=== PATIENT | male | born 1965 | race Caucasian/White ===

== ENCOUNTER → 2020-08-12 11:19 | Outpatient (CLI) | payer OTHER, SELFPAY ==
[2020-08-12 11:41] LABS: Basophils # 0.1 K/mm3 (0-0.2); Eosinophils # 0.2 K/mm3 (0.0-0.4); Eosinophils % 2.3 % (0.1-12.0); Hematocrit 49.6 % (42.0-52.0); Hemoglobin 16.3 g/dL (14.1-18.0); Lymphocytes # 2.8 K/mm3 (0.7-4.5); Mean Corpuscular HGB Conc 32.8 g/dL (31.8-35.4); Mean Corpuscular Hemoglobin 34.4 pg (27.0-31.2); Mean Corpuscular Volume 104.8 fl (80-94); Mean Platelet Volume 8.5 fl (7.4-10.4); Monocytes # 0.9 K/mm3 (0.1-1.0); Monocytes % 9.8 % (1.7-9.3); Neutrophils # 5.1 K/mm3 (1.8-7.8); Neutrophils % 55.8 % (37.0-80.0); Platelet Count 210 K/mm3 (142-424); Red Blood Count 4.73 M/mm3 (4.60-6.20); Red Cell Distribution Width 13.1 % (11.5-17.5); White Blood Count 9.1 K/mm3 (4.8-10.8)
[2020-08-12 12:13] LABS: Alanine Aminotransferase 104 U/L (12-78); Albumin Level 5.3 g/dl (3.5-5.0); Albumin/Globulin Ratio 1.7 (1.1-1.8); Alkaline Phosphatase 95 U/L (38-126); Aspartate Amino Transferase 115 U/L (17-59); Bilirubin,Total 0.8 mg/dl (0.2-1.3); Blood Urea Nitrogen 6 mg/dl (9-20); Calcium 10.3 mg/dl (8.4-10.2); Carbon Dioxide 30 mmol/L (22.0-30.0); Chloride 101 mmol/L (98-107); Estimated Glomerular Filt Rate 101 ml/min (>60); GFR (African American) 122 ML/MIN (>60); Globulin 3.2 g/dL (1.3-3.2); Glucose 96 mg/dl (74-100); Sodium 143 mmol/L (136-145); Total Protein,Serum 8.5 g/dl (6.3-8.2)
[2020-08-12 12:41] LABS: Prothrombin Time 9.6 seconds (10.1-12.5)
[2020-08-13 09:50] LABS: Hep A Ab, IgM Negative (Negative); Hepatitis B Core Antibody IgM Negative (Negative); Hepatitis B Surface Antigen Negative (Negative); Hepatitis C Antibody <0.1 s/co ratio (0.0-0.9)
== END ==
PROVIDERS: Visit Provider Surgery
DX: K40.90 Unilateral inguinal hernia, without obstruction or gangrene, not specified as recurrent (principal)
CPT/HCPCS: 36415; 80053; 80074; 85025; 85610

== ENCOUNTER → 2020-09-08 08:56 | Outpatient (CLI) | payer OTHER, SELFPAY ==
--- NOTE | 2020-09-08 09:01 | CA_ITS ---
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: Lauren Nelson RVT Ht: 5 ft 9 in Wt: 131lbs BSA: 1.73 BP: 138/100 mmHg Indications: PRE-OP,CP,EDEMA,SMOKER,SOA,FATIGUE,ABN EKG,ALCOHOL ABUSE 2D Dimensions LVOT 2.04 cm (M/F) 1.5-2.5 LA Volume 15.10 mL LA Volume Index 8.77 mL/m2 (M/F) 16-34 M-Mode Dimensions RVDd 2.57 cm (0.9-2.6) LA Diam 2.85 cm (1.9-4.0) LVDd 3.70 cm (3.5-5.7) Ao Diam 3.19 cm (2.0-3.7) LVDs 2.11 cm (3.5-5.7) IVSd 0.98 cm (0.6-1.1) PWd 0.84 cm (0.6-1.1) EF (Teich) 74.90% FS 43.00% EDV (Teich) 58.10 mL TAPSE 2.15 (<1.7) ESV (Teich) 14.60 mL LV Diastology E Decel Time 240.00 (160-240 msec) E/A Ratio 1.2 MED E' 8.60 (< 7 cm/sec) E'/MED E' Ratio 8.93 (>14) LAT E' 13.20 (<10 cm/sec) E/LAT E' Ratio 5.82 (>14) Aortic Valve AO Peak GR. 6.00 mmHg Mitral Valve MV E Max Fox. 77.00 (40-130 cm/s) MV A Velocity 62.00 (40-130 cm/s) E/A Ratio 1.24 MV Decel. Time 240.00 (160-240 ms) MV PHT 70.00 ms Pulmonary Valve PV Peak Velocity 68.00 (50-150 cm/s) Tricuspid Valve TR P. Velocity 173.00 cm/s RAP Estimate 10.00 mmHg RVSP 21.90 mmHg Left Ventricle Left atrium is normal size, left ventricle is normal size, there is no concentric left ventricular hypertrophy, visually estimated ejection fraction 55% with no regional wall motion abnormality, diastolic parameters are within normal range. Right Ventricle Right atrium and right ventricle are normal size and contractility. Aortic Valve Aortic valve is grossly normal, there is no aortic stenosis or aortic insufficiency. Mitral Valve Mitral valve is grossly normal, there is trace mitral regurgitation. Tricuspid Valve Tricuspid valve grossly normal, there is trace tricuspid regurgitation, tricuspid regurgitation jet velocity is inadequate for calculation of the right ventricular systolic pressure. Pulmonic Valve Pulmonic valve is poorly visualized. Great Vessels Aortic root is normal size. Pericardium No significant pericardial effusion noted. Conclusion 1. Normal left ventricular size, preserved left ventricular systolic function, visually estimated ejection fraction 55% with no regional wall motion abnormality, diastolic parameters are within normal range. 2. Trace mitral and tricuspid regurgitation. 3. No significant pericardial effusion noted. Electronically signed by : Spike Chavez, 09/08/2020 15:21:35
== END ==
PROVIDERS: PCP Family Medicine Adult Medicine; Visit Provider Internal Medicine
DX: Z01.810 Encounter for preprocedural cardiovascular examination (principal); R06.00 Dyspnea, unspecified; I20.8 Other forms of angina pectoris; R94.31 Abnormal electrocardiogram [ECG] [EKG]; R00.0 Tachycardia, unspecified; F17.200 Nicotine dependence, unspecified, uncomplicated; Z82.49 Family history of ischemic heart disease and other diseases of the circulatory system
CPT/HCPCS: 93306

== ENCOUNTER → 2020-09-14 13:17 | Outpatient (CLI) | payer OTHER, SELFPAY ==
[2020-09-14 14:14] LABS: Anion Gap 13.6 mEq/L (5-15); Blood Urea Nitrogen 8 mg/dl (9-20); Calcium 9.3 mg/dl (8.4-10.2); Carbon Dioxide 28 mmol/L (22.0-30.0); Chloride 103 mmol/L (98-107); Estimated Glomerular Filt Rate 118 ml/min (>60); GFR (African American) 143 ML/MIN (>60); Glucose 84 mg/dl (74-100); Potassium 4.6 mmoL/L (3.5-5.1); Sodium 140 mmol/L (136-145)
[2020-09-14 14:18] LABS: Basophils # 0.2 K/mm3 (0-0.2); Basophils % 2.5 % (0.1-2.0); Eosinophils # 0.3 K/mm3 (0.0-0.4); Eosinophils % 2.9 % (0.1-12.0); Lymphocytes # 3.9 K/mm3 (0.7-4.5); Lymphocytes % 39.9 % (10-50); Mean Corpuscular HGB Conc 33.4 g/dL (31.8-35.4); Mean Corpuscular Hemoglobin 34.2 pg (27.0-31.2); Mean Corpuscular Volume 102.3 fl (80-94); Monocytes # 0.9 K/mm3 (0.1-1.0); Monocytes % 9.4 % (1.7-9.3); Neutrophils # 4.4 K/mm3 (1.8-7.8); Neutrophils % 45.4 % (37.0-80.0); Platelet Count 196 K/mm3 (142-424); Red Cell Distribution Width 13.5 % (11.5-17.5); White Blood Count 9.7 K/mm3 (4.8-10.8)
== END ==
PROVIDERS: Visit Provider Internal Medicine
DX: Z01.810 Encounter for preprocedural cardiovascular examination (principal); Z11.52 Encounter for screening for COVID-19; I20.8 Other forms of angina pectoris; R07.9 Chest pain, unspecified; R06.00 Dyspnea, unspecified; R00.0 Tachycardia, unspecified; F17.200 Nicotine dependence, unspecified, uncomplicated; Z82.49 Family history of ischemic heart disease and other diseases of the circulatory system
CPT/HCPCS: 36415; 80048; 85025; U0003

== ENCOUNTER 2020-09-15 07:25 | Day surgery (SDC) | payer OTHER, SELFPAY ==
[2020-09-15] VITALS (8 sets, daily range): BP systolic 101–179; BP diastolic 61–117; PULSE 52–77; RESP 16–20; TEMP 36.8–36.9; O2SAT 98–100; BMI 19.3
--- NOTE | 2020-09-15 07:17 | IR_ITS ---
APPROVED REPORT Patient Location: Outpatient Credit Processor: RAHUL Irwin RT (R) PROCEDURES Left heart catheterization Left ventriculogram Selective coronary angiogram INDICATION Preoperative evaluation, Angina pectoris Informed consent was obtained prior to the procedure. COMPLICATIONS NONE Estimated Blood Loss: LESS THAN 10 ML TECHNIQUE One percent lidocaine used to anesthetize the right anterior aspect of the wrist. The right radial artery was accessed via the Seldinger technique. A 6 Pashto sheath was placed in the right radial artery. 2.5 mg of verapamil, 800 mcg of nitroglycerin, 1mg Lidocaine and 5000 U Heparin were given through the arterial sheath. The trap catheter was also used to perform left heart catheterization, left ventriculogram and selective coronary angiogram. At the end of the procedure the sheath was removed good hemostasis was achieved using Traclet band, patient was transferred to the postop holding area in stable condition. ANGIOGRAPHIC RESULTS The left main artery Normal The left anterior descending artery Has proximal smooth 20 to 30% stenosis with remaining vessel normal The circumflex artery Dominant with diffuse 10 to 20% stenoses The right coronary artery Nondominant with mild 10% luminal irregularities The KAYE ventriculogram reveals Normal 65% The left ventricular end-diastolic pressure 10 mmHg IMPRESSION Mild nonflow limiting coronary disease Normal ejection fraction Normal left ventricular and SI pressure PLAN 1. Aggressive risk factor modification 2. Avoidance of tobacco products 3. LDL less than 55 4. Patient is alone acceptable risk to proceed with elective bilateral herniorrhaphy Electronically signed by : Xavier Sanchez, 09/15/2020 09:33:20
== END 2020-09-15 11:25 | disposition home or self-care (01) ==
LOC: CATHLAB 07:28
PROVIDERS: PCP Family Medicine Adult Medicine; Visit Provider Internal Medicine
DX: I20.8 Other forms of angina pectoris (principal); F17.210 Nicotine dependence, cigarettes, uncomplicated; R00.0 Tachycardia, unspecified; R06.00 Dyspnea, unspecified; R94.31 Abnormal electrocardiogram [ECG] [EKG]; Z82.49 Family history of ischemic heart disease and other diseases of the circulatory system
CPT/HCPCS: 93458; 99152; C1725; C1769; J1644; Q9967

== ENCOUNTER → 2020-10-01 09:29 | Outpatient (CLI) | payer OTHER, SELFPAY ==
[2020-10-01 10:04] LABS: Basophils # 0.1 K/mm3 (0-0.2); Eosinophils # 0.3 K/mm3 (0.0-0.4); Eosinophils % 4.1 % (0.1-12.0); Hemoglobin 15.5 g/dL (14.1-18.0); Lymphocytes # 2.1 K/mm3 (0.7-4.5); Lymphocytes % 24.8 % (10-50); Mean Corpuscular Hemoglobin 34.4 pg (27.0-31.2); Mean Corpuscular Volume 104.5 fl (80-94); Mean Platelet Volume 8.7 fl (7.4-10.4); Monocytes # 0.8 K/mm3 (0.1-1.0); Monocytes % 9.7 % (1.7-9.3); Neutrophils % 60.4 % (37.0-80.0); Platelet Count 189 K/mm3 (142-424); Red Cell Distribution Width 13.4 % (11.5-17.5); White Blood Count 8.3 K/mm3 (4.8-10.8)
[2020-10-01 10:43] LABS: Prothrombin Time 9.8 seconds (10.1-12.5)
[2020-10-01 10:47] LABS: INR 0.82 (0.9-1.1)
[2020-10-01 11:38] LABS: Alanine Aminotransferase 86 U/L (12-78); Albumin Level 4.7 g/dl (3.5-5.0); Alkaline Phosphatase 88 U/L (38-126); Aspartate Amino Transferase 97 U/L (17-59); Bilirubin,Direct 0.5 mg/dl (0.0-0.4); Bilirubin,Indirect 0.4 mg/dL (0.0-0.9); Bilirubin,Total 0.9 mg/dl (0.2-1.3); Bilirubin,Unconjugated 0.4 mg/dL (0.0-1.1); Chol/HDL Ratio 2.2 (1-3.5); Cholesterol 204 mg/dl (140-200); HDL Cholesterol 92 mg/dl (40-60); Total Protein,Serum 7.6 g/dl (6.3-8.2); Triglycerides 59 mg/dl (30-150); VLDL Cholesterol 12 mg/dL (0-40)
[2020-10-01 11:45] LABS: Alanine Aminotransferase 86 U/L (12-78); Albumin Level 4.8 g/dl (3.5-5.0); Albumin/Globulin Ratio 1.7 (1.1-1.8); Alkaline Phosphatase 87 U/L (38-126); Anion Gap 13.7 mEq/L (5-15); Aspartate Amino Transferase 98 U/L (17-59); Blood Urea Nitrogen 8 mg/dl (9-20); Calcium 9.3 mg/dl (8.4-10.2); Carbon Dioxide 27 mmol/L (22.0-30.0); Chloride 108 mmol/L (98-107); Estimated Glomerular Filt Rate 118 ml/min (>60); GFR (African American) 143 ML/MIN (>60); Globulin 2.9 g/dL (1.3-3.2); Glucose 101 mg/dl (74-100); Potassium 5.7 mmoL/L (3.5-5.1); Sodium 143 mmol/L (136-145); Total Protein,Serum 7.7 g/dl (6.3-8.2)
== END ==
PROVIDERS: Nurse Practitioner Family; Visit Provider Surgery
DX: Z01.810 Encounter for preprocedural cardiovascular examination (principal); I20.8 Other forms of angina pectoris; K40.90 Unilateral inguinal hernia, without obstruction or gangrene, not specified as recurrent; F17.200 Nicotine dependence, unspecified, uncomplicated; Z82.49 Family history of ischemic heart disease and other diseases of the circulatory system
CPT/HCPCS: 36415; 80053; 80061; 80076; 85025; 85610

== ENCOUNTER → 2020-10-03 13:18 | Outpatient (CLI) | payer OTHER, SELFPAY | PROVIDERS: Visit Provider Surgery | DX: Z01.812 Encounter for preprocedural laboratory examination (principal); Z11.52 Encounter for screening for COVID-19; K40.90 Unilateral inguinal hernia, without obstruction or gangrene, not specified as recurrent | CPT/HCPCS: U0003 ==

== ENCOUNTER 2020-10-04 06:02 | Day surgery (SDC) | payer OTHER, SELFPAY ==
[2020-09-30 08:39] VITALS: BMI 19.3
[2020-10-04] VITALS (10 sets, daily range): BP systolic 140–173; BP diastolic 80–107; PULSE 55–70; RESP 18; TEMP 36.1–37.2; O2SAT 97–99
--- NOTE | 2020-10-04 07:46 | HMH.ANESCL ---
[facility] Anesthesia Checklist - Patient Identification Patient Identification: Arm Band, Verbal (Name & ) - Structural Data Admitted From: Home Planned Operative Procedure/s: radha. lap. ing. hernia repair Consent for Planned Operative Procedure(s) Verified: Yes Verified Documents: History and Physical - Chart Verification Results Verified: CBC, BMP, PT, PTT, INR, BUN, Creatinine - Additional verifications Patient : No Anesthesia Reactions: No Hx Blood Transfusions: No Blood Transfusion Reaction: No Cephalosporin Allergy: No Previous Colonoscopy: No - Cardiovascular Assessment Heart Sounds: S1 & S2 Pulse Strength: Baseline Pulse Rhythm: Regular Peripheral Edema: No - Airway Assessment C-Spine Mobility Assessed: Yes TMJ Mobility Assessed: Yes Dentition: Poor Dentition - Neurological Assessment Level of Consciousness: Awake, Alert, Appropriate Hx Seizures: No Numbness or tingling in extremities: No - Genitourinary Assessment 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 - Anesthesia Plan Anesthesia Risk discussed: Yes Anesthesia Plan: Verified ASA Class: III Anesthesia Type: General [facility] History I have reviewed the patient's past medical history: Yes Medical History: Reports:: Hypertension Denies:: Cancer, Diabetes Mellitus Type 1, Diabetes Mellitus Type 2, Internal Pacemaker, MRSA, Seizures *Have you ever received a pneumonia vaccine?: No *Have you received a flu vaccine this season?: No Other Medical History: Denies: Blood Transfusion Reaction Anesthesia experience/problems:: none Other Surgeries: Yes: No Previous Surgery, Cardiac Catheterization. No: Pacemaker Amputation: No Fractures: No - *Social History Last grade of school completed: High school graduate Smoking Status: Current every day smoker Tobacco Type: cigarettes # Packs/Day (cigarettes): 1 Alcohol Intake: never Alcohol Intake Frequency:: 0-2 drinks per day Substance Use Type: marijuana *Occupational Status:: unemployed Housing: house Household Members: spouse *Travel in the last 8 weeks: None Family Hx:: No significant family history
--- NOTE | 2020-10-04 08:55 | HMH.OPNOTE ---
Date of procedure: 10/04/20 Pre-op Diagnosis:: Bilateral inguinal hernias Post-op Diagnosis:: Same Procedure performed:: Bilateral laparoscopic inguinal hernia repair (TEPP) Surgeon:: Renny Shrestha MD CHEMISTRY ASSOCIATE:: Other Anesthesia: GETA Estimated blood loss (mL): 20 Clinical Note:: Patient presents for bilateral inguinal hernia repair. Patient is a 55-year-old male smoker referred by Dr. Ruddy Barnes from the [facility] in [place] for left inguinal hernia. Patient states that he has had bulge in the left groin area for about 3 to 4 years. It has increased in size. Is become uncomfortable and symptomatic and he wishes to consider repair. Patient was seen in the office and diagnosed with bilateral inguinal hernias with the left side being greater than the right. Consideration was given for possible laparoscopic repair. However, given the patient's family history, personal history, and risk factors I had him undergo cardiology evaluation. He did undergo heart catheterization. Cardiology deemed him a low and acceptable risk to proceed. Operative findings:: He had a moderate sized direct left inguinal hernia with a small indirect inguinal hernia. On the right there was a small to moderate indirect inguinal hernia. Operative note:: Patient was taken to the operating room. He was positioned supine position. General anesthesia was induced. Vyas catheter was placed. Abdomen was prepped and draped in the standard surgical fashion. Subumbilical skin incision was made. Dissection was carried down to the anterior rectus fascia which was incised to the left of the linea alba. Rectus muscles were retracted laterally and preperitoneal space was entered. Dissecting balloon trocar was inserted and the preperitoneal space was dissected free. Dissecting balloon trocar was then replaced with the structural balloon trocar. CO2 pneumo preperitoneum was achieved to 15 mmHg. A couple 5 mm trochars were inserted in the midline inferior to the umbilicus. Attention was first turned to dissection on the left side. Landmarks were identified. Eriberto's ligament was initially identified. Inferior epigastric vessels were easily identified. Cord structures were identified. Preperitoneal space was dissected free. Cord structures were isolated and there was noted to be a hernia sac which was dissected free from the cord and return to normal anatomic position. Preperitoneal space was dissected out laterally to allow for mesh placement. Next attention was turned to dissection on the right side. Once again landmarks were sequentially identified. Eriberto's ligament and inferior epigastric vessels were identified. Dissection was carried out of the cord. There was noted to be hernia sac and this was dissected free as before. Dissection was carried out laterally dissecting out the preperitoneal space. Once dissection was fully performed a large sized light Bard 3D max mesh dedicated for the right side was inserted into the preperitoneal space. Is oriented intracorporeally to cover the iliopectineal orifice for good hernia repair. Next attention was turned to mesh placement on the left side. A large Bard nonlight 3D max mesh was inserted into the preperitoneal space. Is oriented intracorporeally to cover the iliopectineal orifice with good overlap of the fascial defects. Repair appeared adequate. There was good hemostasis. Mesh was observed in good position as CO2 pneumo preperitoneum was evacuated. Trochars were removed. Posterior fascia at the umbilical trocar site was opened and the peritoneum was incised to evacuate any intra-abdominal gas. Anterior fascia at the umbilicus was then closed with several interrupted 0 Vicryl sutures. Local anesthetic was infiltrated into all trocar sites and for inguinal nerve blocks. Skin incisions were closed with 4-0 Monocryl in a subcuticular fashion. Steri-Strips and dressings were applied. Condit
--- NOTE | 2020-10-04 09:10 | P.PN_ITS ---
[facility] Anesthesia Record Part I Intake, IV Amount: 850 Estimated blood loss (mL): 10 Urine output (mL): 20 Blood Products used (#): none Blood Pressure: 140/80 SaO2: 99 Pulse Rate: 60 Respiratory Rate: 18 Temperature: 97.5 F Patient is:: Drowsy Stable to PACU at:: 09:03
--- NOTE | 2020-10-04 09:12 | ECG_ITS ---
APPROVED REPORT Exam: Resting ECG HR:58 bpm ECG Measurements Heart Rate 58 AXES MS 134 P 71 QRSd 98 QRS 67 QT 424 T 60 QTc 416 Conclusion Sinus bradycardia Otherwise normal ECG Electronically signed by : Jose L Rodríguez MD 10/05/2020 11:45:40
[2020-10-04 11:38] LABS: Microscopic,Cath URINE MICROSCOPIC (MICROSCOPIC)
[2020-10-04 13:30] LABS: Appearance,Urine/Cath CLEAR (Clear); Bilirubin,Cath Negative (Negative); Blood, Urine/Cath 1+ (Negative); Color,Urine/Cath YELLOW (Yellow); Glucose,Urine/Cath (UA) Negative (Negative); Ketones,Urine/Cath Negative (Negative); Leukocyte Esterase,Cath Negative (Negative); Nitrate,Cath Negative (Negative); Protein,Urine/Cath 2+ (Negative); Specific Gravity, Urine/Cath 1.025 (1.005-1.030); Urobilinogen,Cath 0.2 EU/dl (0.2)
--- NOTE | 2020-10-04 13:34 | HMH.ANESII ---
[facility] Anesthesia Record Part II Discharge Time: 09:32 Destination: Surgical Day Care (OP Surgery) PACU nurse assessment reviewed?: Yes Patient Condition:: Good Anesthesia Complications:: None Swallowing reflex intact?: Yes Cyanosis?: No Blood Pressure: 148/89 Pulse Rate: 56 Temperature: 97.1 F Mental Status: Alert & Oriented Pain level:: 0 Nausea and/or vomitting:: None Intake, IV Amount: 30
[2020-10-04 14:52] LABS: Bacteria,Urine/Cath 1+ /lpf; WBC,Urine/Cath Occasional #/hpf (0-3)
== END 2020-10-04 10:07 | disposition home or self-care (01) ==
PROVIDERS: PCP Family Medicine Adult Medicine; Visit Provider Surgery
PROC: (CPT 49650; principal; 2020-10-04 07:30)
DX: K40.20 Bilateral inguinal hernia, without obstruction or gangrene, not specified as recurrent (principal); I10 Essential (primary) hypertension; Z72.0 Tobacco use; F12.90 Cannabis use, unspecified, uncomplicated; I25.10 Atherosclerotic heart disease of native coronary artery without angina pectoris
CPT/HCPCS: 49650; 81001; 93005; 96374; C1781; J2405; J2710

== ENCOUNTER → 2020-12-26 10:11 | Outpatient (CLI) | payer OTHER, SELFPAY | PROVIDERS: Visit Provider Nurse Practitioner | DX: Z20.822 Contact with and (suspected) exposure to COVID-19 (principal) | CPT/HCPCS: C9803; U0003; U0005 ==

== ENCOUNTER → 2021-01-02 12:29 | Outpatient (CLI) | payer OTHER, SELFPAY | PROVIDERS: Visit Provider Nurse Practitioner | DX: U07.1 COVID-19 (principal) | CPT/HCPCS: C9803; U0003; U0005 ==

== ENCOUNTER → 2021-01-09 14:28 | Outpatient (CLI) | payer OTHER, SELFPAY | PROVIDERS: Visit Provider Nurse Practitioner | DX: U07.1 COVID-19 (principal) | CPT/HCPCS: C9803; U0003; U0005 ==

== ENCOUNTER 2023-10-15 10:19 | Outpatient (CLI) | payer SELFPAY ==
[2023-10-17 03:36] LABS: Neisseria gonorrhoeae, NAA Negative (Negative)
== END 2023-10-15 23:59 | disposition home or self-care (01) ==
LOC: LAB.DROPOF 10-16 13:19
PROVIDERS: PCP Nurse Practitioner Family; Visit Provider Nurse Practitioner Family
DX: R30.0 Dysuria (principal); R35.0 Frequency of micturition; R11.0 Nausea
CPT/HCPCS: 87086; 87088; 87186; 87491; 87591

== ENCOUNTER 2024-03-10 10:56 | Outpatient (CLI) | payer OTHER, SELFPAY ==
[2024-03-10 10:42] LABS: Basophils # 0.1 K/mm3 (0-0.2); Basophils % 1.3 % (0.1-2.0); Eosinophils # 0.3 K/mm3 (0.0-0.4); Eosinophils % 4.1 % (0.1-12.0); Hematocrit 46.8 % (42.0-52.0); Hemoglobin 16.1 g/dL (14.1-18.0); Lymphocytes # 1.9 K/mm3 (0.7-4.5); Lymphocytes % 26.3 % (10-50); Mean Corpuscular HGB Conc 34.4 g/dL (31.8-35.4); Mean Corpuscular Hemoglobin 35.1 pg (27.0-31.2); Mean Platelet Volume 10.8 fl (7.4-10.4); Monocytes # 0.7 K/mm3 (0.1-1.0); Monocytes % 9.4 % (1.7-9.3); Neutrophils # 4.2 K/mm3 (1.8-7.8); Neutrophils % 58.6 % (37.0-80.0); Platelet Count 191 K/mm3 (142-424); Red Blood Count 4.59 M/mm3 (4.60-6.20); Red Cell Distribution Width 12.5 % (11.5-17.5); White Blood Count 7.2 K/mm3 (4.8-10.8)
[2024-03-10 10:58] LABS: Albumin Level 4.8 g/dl (3.5-5.0); Chloride 104 mmol/L (98-107); Potassium 4.6 mmoL/L (3.5-5.1); Sodium 138 mmol/L (136-145)
[2024-03-10 11:00] LABS: Alanine Aminotransferase 67 U/L (12-78); Anion Gap 12.6 mEq/L (5-15); Aspartate Amino Transferase 98 U/L (17-59); Blood Urea Nitrogen 5 mg/dl (9-20); Carbon Dioxide 26 mmol/L (22.0-30.0); Estimated Glomerular Filt Rate 117 ml/min (>60); GFR (African American) 141 ML/MIN (>60)
[2024-03-10 11:01] LABS: Albumin/Globulin Ratio 1.7 (1.1-1.8); Alkaline Phosphatase 98 U/L (38-126); Bilirubin,Total 0.8 mg/dl (0.2-1.3); Calcium 9.9 mg/dl (8.4-10.2); Chol/HDL Ratio 2.5 (1-3.5); Cholesterol 205 mg/dl (140-200); Globulin 2.9 g/dL (1.3-3.2); Glucose 87 mg/dl (74-100); HDL Cholesterol 82 mg/dl (40-60); Magnesium 1.9 mg/dl (1.6-2.3); Total Protein,Serum 7.7 g/dl (6.3-8.2); Triglycerides 86 mg/dl (30-150); VLDL Cholesterol 17 mg/dL (0-40)
[2024-03-10 11:07] LABS: Erythrocyte Sedimentation Rate 14 mm/hr (0-20)
[2024-03-10 11:13] LABS: Direct LDL Cholesterol 112.98 mg/dL (100-129)
[2024-03-10 11:22] LABS: 25-OH Vitamin D, Total 19.8 ng/mL (30-100)
[2024-03-10 11:33] LABS: Thyroid Stimulating Hormone 2.12 uIU/mL (0.465-4.68)
[2024-03-10 12:16] LABS: Uric Acid 4.3 mg/dl (3.5-8.5)
[2024-03-10 13:07] LABS: Vitamin B12 458 pg/mL (239-931)
[2024-03-11 04:08] LABS: RA Latex Turbid. 12.4 IU/mL (<14.0)
[2024-03-13 11:16] LABS: Antinuclear Antibodies, IFA POSITIVE
== END 2024-03-10 23:59 | disposition home or self-care (01) ==
LOC: LAB.DROPOF 10:56
PROVIDERS: PCP Nurse Practitioner Family; Visit Provider Nurse Practitioner Family
DX: I10 Essential (primary) hypertension (principal); E78.2 Mixed hyperlipidemia; D64.9 Anemia, unspecified; Z12.5 Encounter for screening for malignant neoplasm of prostate; M25.541 Pain in joints of right hand; M25.542 Pain in joints of left hand; R79.89 Other specified abnormal findings of blood chemistry; E55.9 Vitamin D deficiency, unspecified
CPT/HCPCS: 80053; 80061; 82306; 82607; 83735; 84443; 84550; 85025; 85651; 86038; 86431; G0103

== ENCOUNTER 2024-03-18 07:49 | Outpatient (CLI) | payer OTHER, SELFPAY ==
--- NOTE | 2024-03-18 07:53 | US_ITS ---
FINAL REPORT CLINICAL HISTORY: Elevated liver enzymes COMPARISON: None FINDINGS: HEPATIC ULTRASOUND Multiple transverse and longitudinal scans were performed of the right upper quadrant of the abdomen. There is fatty infiltration of the liver. No intrahepatic duct dilatation is identified. No evidence of common bile duct dilatation is identified. There is a minimal amount of sludge in the neck of the gallbladder. Doppler exam shows normal directional flow within patent hepatic and portal veins. No gallstones are seen. No evidence of perihepatic fluid is identified. IMPRESSION: Unremarkable hepatic ultrasound. Reviewed, Interpreted and Dictated by J Carlos Leyva MD Transcribed by Bridget Tang Authenticated and [facility]
== END 2024-03-18 23:59 | disposition home or self-care (01) ==
LOC: RAD 07:50
PROVIDERS: PCP Nurse Practitioner Family; Visit Provider Nurse Practitioner Family
DX: R74.8 Abnormal levels of other serum enzymes (principal)
CPT/HCPCS: 76705

== ENCOUNTER 2024-04-30 12:30 | Emergency (ER) | payer OTHER, SELFPAY ==
[2024-04-30 12:40] VITALS: BP 153/101; PULSE 98; RESP 20; TEMP 36.9; O2SAT 97; BMI 19.9
--- NOTE | 2024-04-30 12:47 | HMH.EDGENADL ---
Discharge Plan Disposition Patient Disposition: Home, Self-Care Condition: Good Prescriptions Prescriptions: No Action azelastine 137 mcg (0.1 %) spray,non-aerosol 2 spray intranasal BID Qty: 30 2RF Rx Instructions: administer into each nostril levocetirizine 5 mg tablet 5 mg PO DAILY Qty: 30 2RF lisinopril 10 mg tablet 10 mg PO DAILY Qty: 30 11RF trazodone 50 mg tablet 50 mg PO DAILY Qty: 30 2RF cholecalciferol (vitamin D3) 50 mcg (2,000 unit) capsule 50 mcg PO DAILY 30 Days Qty: 30 5RF aspirin 81 MG tablet,delayed release (DR/EC) 81 mg PO DAILY Referrals Follow up/Referrals: Claudine Singleton APRN [Primary Care Provider] - See instructions Activity Restrictions/Add. Instructions Additional Instructions/Restrictions: Today your evaluated in the emergency department after a fall, your x-rays are negative. Your AST and ALT are elevated, please follow-up with your PCP for further evaluation. Please go to alcohol detox. Please return to the ED for any worsening of condition. Clinical Impressions Clinical Impression: Fall Qualifiers: Encounter type: initial encounter Qualified Code(s): W19.XXXA - Unspecified fall, initial encounter Stand Alone Forms Stand Alone Forms: Work/School Release Instructions Patient Instructions: How to Prevent Falls Print Language Print Language: Turkish Discharge ED Provider: Chino Shah General Adult HPI <Laury Kraft APRN - Last Filed: 04/30/24 17:02> General Chief complaint: Fall Stated complaint: AO 04/29/24, fell, left rib pain Time Seen by Provider: 04/30/24 12:46 History of Present Illness HPI narrative: patient is a 58-year-old male PMHx HTN, alcoholism who presents to the ED for fall that occurred last night after tripping over his cat. Patient states that he landed on his left rib area and left hip. Denies loss of consciousness. Denies taking any blood thinners. Related Data Home Medications ?Medication ?Instructions ?Recorded ?Confirmed aspirin 81 mg tablet,delayed 81 mg PO DAILY Heartburn 09/30/20 04/30/24 release Previous Rx's ?Medication ?Instructions ?Recorded azelastine 137 mcg (0.1 %) nasal 2 spray intranasal BID #30 mL 03/10/24 spray levocetirizine 5 mg tablet 5 mg PO DAILY #30 tabs 03/10/24 cholecalciferol (vitamin D3) 50 50 mcg PO DAILY 30 days #30 caps 03/11/24 mcg (2,000 unit) capsule lisinopril 10 mg tablet 10 mg PO DAILY #30 tabs 04/10/24 trazodone 50 mg tablet 50 mg PO DAILY #30 tabs 04/10/24 Allergies Allergy/AdvReac Type Severity Reaction Status Date / Time No Known Allergies Allergy Verified 04/10/24 14:25 [facility] <Laury Kraft APRN - Last Filed: 04/30/24 17:02> [facility] Disclaimer: The information contained in this section may have been updated after the patient was seen, as this information can be updated by other users. Medical History Sinus tachycardia Atypical angina Family history of heart disease Tobacco dependence syndrome Dyspnea Chest pain Encounter for pre-operative cardiovascular clearance Surgical History H/O hernia repair History of cardiac cath Social History Smoking Status: Current every day smoker tobacco type: cigarettes packs per day: 1 alcohol intake: current alcohol intake frequency: 3 or more drinks per day substance use type: marijuana current occupational status: employed Travel in the last 8 weeks: None household members: spouse housing: house current occupational exposures/hazards: No caffeine: Yes Have you lived/traveled outside [place] in past 30 days?: No Contact w/someone who lives/traveled outside [place] past 30 days?: No Exposure to someone with infectious disease in past 14 days?: No Do you have a fever (greater than 100.4 F or 38 C)?: No Have you tested positive for COVID-19: No Exposed to someone with COVID-19 in past 14 days?: No Do you have a sore throat?: No Do you have a cough?: No Do you have any weakness?: No Do you have any diarrhea?: No Are you experiencing any unusual bleeding?: No Do you have any muscle aches/pain?: No Do you have any abdominal pain?: No Are you experiencing loss of taste or smell?: No Other Medical History Have you received the Flu Vaccine for this season: No Have you received the Pneumonia Vaccine: No <Laury Kraft APRN - Last Filed: 04/30/24 17:02> ROS Obtained: Yes Systems reviewed as appropriate & no additional complaints except as documented Physical Exam <Laury Kraft APRN - Last Filed: 04/30/24 17:02> General General appearance: alert and in no apparent distress Head Head exam: atraumatic and normocephalic Eye Eye exam: Present normal appearance and PERRL ENT ENT exam: Present normal exam Neck Neck exam: Present normal inspection Chest Chest inspection: Present normal inspection and symmetric chest wall rise; Absent tenderness Respiratory Respiratory exam: Present normal lung sounds bilaterally Cardiovascular Cardiovascular exam: Present regular rate Abdominal Exam Abdominal exam: Present soft and normal bowel sounds; Absent tenderness Extremities Exam Extremities exam: Present normal inspection and full ROM Back Exam Back exam: Present normal inspection and full ROM Neurological Exam Neurological exam: Present alert and oriented X3 Psychiatric Psychiatric exam: Present normal affect and normal mood Skin Skin exam: Present warm, dry and other (Mild erythema and abrasion over left rib, mild erythema and abrasion over the left hip bony prominence) Medical Decision Making <Laury Kraft APRN - Last Filed: 04/30/24 17:02> Medical Records Screening: Per USPSTF and CDC recommendations, given the prevalence of disease in our region, it is our hospital?s policy to screen for HIV and viral Hepatitis for all patients aged 18 and over and those with ongoing risk factors. Chip Inquiry Pt receiving controlled substance: No Vital Signs: 04/30/24 12:40 04/30/24 13:30 04/30/24 14:00 Temperature 98.5 F Temperature Source Oral Pulse Rate 90 89 Pulse Rate [Left Radial] 98 H Respiratory Rate 20 Blood Pressure 158/94 H 153/88 H Blood Pressure [Right Arm] 153/101 H Blood Pressure Mean 112 Blood Pressure Mean [Right Arm] 118 02 Sat by Pulse Oximetry 97 95 94 L Oxygen Delivery Method Room Air Room Air 04/30/24 14:30 04/30/24 15:32 Temperature 98.2 F Temperature Source Pulse Rate 94 H 85 Pulse Rate [Left Radial] Respiratory Rate 20 Blood Pressure 164/98 H 151/93 H Blood Pressure [Right Arm] Blood Pressure Mean 120 Blood Pressure Mean [Right Arm] 02 Sat by Pulse Oximetry 94 L Oxygen Delivery Method Room Air Lab Data Lab Results 04/30/24 13:08: WBC 13.4 H, RBC 4.36 L, Hgb 15.2, Hct 43.1, MCV 98.9 H, MCH 34.9 H, MCHC 35.3, RDW 12.6, Plt Count 185, MPV 10.1, Neut % (Auto) 67.7, Lymph % (Auto) 20.0, Haines % (Auto) 9.8 H, Eos % (Auto) 1.2, Baso % (Auto) 0.9, Neut # (Auto) 9.1 H, Lymph # (Auto) 2.7, Haines # (Auto) 1.3 H, Eos # (Auto) 0.2, Baso # (Auto) 0.1, Sodium 138, Potassium 4.2, Chloride 103, Carbon Dioxide 22, Anion Gap 17.2 H, BUN 6 L, Creatinine 0.70, Estimated Creat Clear 102, Estimated GFR 117, Est GFR ( Amer) 141, Glucose 87, Calcium 9.6, Total Bilirubin 0.9, AST 150 H, ALT 93 H, Alkaline Phosphatase 98, Total Protein 8.5 H, Albumin 5.2 H, Globulin 3.3 H, Albumin/Globulin Ratio 1.6, Plasma/Serum Alcohol 135 H 04/30/24 13:08 04/30/24 13:08 Orders (Tests/Meds): ORDERS Category Date Time Status Consult Security Tester [CONS] Routine Cons 04/30/24 14:06 Active CXR 2 view (NOT portable) [XR chest 2V] Stat Exams 04/30/24 12:51 Completed Hip XR left minimum 2 views [XR hip LT 2-3V w/pelvis] Exams 04/30/24 12:51 Completed Stat CBC w/Auto Diff [Complete Blood Count Auto Diff] Stat Lab 04/30/24 13:08 Completed CMP [Comprehensive Metabolic Panel] Stat Lab 04/30/24 13:08 Completed Ethyl Alcohol Stat Lab 04/30/24 13:08 Completed Medical Decision Narrative: In summary, patient is a 58-year-old male PMHx HTN, alcoholism who presents to the ED for fall that occurred last night after tripping over his cat. Patient states that he landed on his left rib area and left hip. Denies loss of consciousness. Denies taking any blood thinners. Patient did not try to catch himself during the fall. States that he has smoked 5 cigars/day for many years. Estimates that he drinks at least 12 beers ([employer]) per day for several years. Denies any symptoms of withdrawal at this time. Has urinated since the fall. Upon initial exam, patient is alert, oriented and cooperative. Patient is hemodynamically stable. Physical exam remarkable for mild ecchymosis & abrasion over the left rib area, tenderness. Mild bruising and abrasion noted over left hip bony prominence. Patient did not try to catch himself. No hand or wrist tenderness. Denies fever, chills, body aches, headache, visual disturbances, posterior neck pain, chest pain, shortness of breath, back pain, difficulty with ambulation. Differential diagnosis includes rib fracture, pelvic or hip fracture, intoxicated, among others. Initial workup will be conducted with hematologic labs, imaging. Initial workup reviewed by me. CBC remarkable for leukocytosis 13.4, stable H&H. CMP remarkable for anion gap 17.2, BUN 6. AST 150, ALT 93. Serum alcohol 135. I considered additional testing but deferred due to patient remains alert, oriented, steady gait. I discussed with patient his elevated AST and ALT, patient states his primary has told him about this before. The hip x-ray is unremarkable for any acute fracture in the chest x-ray is unremarkable for any acute cardiopulmonary process, see final read. Upon repeat evaluation, patient had an acceptable resolution of symptoms. They were ambulatory in the ED. Able to tolerate PO. Given this, although alcohol level is elevated, patient is clinically sober. I discussed with him that he will need to follow back up with his PCP within 7 days. We discussed return precautions to the ED. Patient verbalized understanding. <Chino Shah MD - Last Filed: 05/03/24 20:38> Vital Signs: 04/30/24 12:40 04/30/24 13:30 04/30/24 14:00 Temperature 98.5 F Temperature Source Oral Pulse Rate 90 89 Pulse Rate [Left Radial] 98 H Respiratory Rate 20 Blood Pressure 158/94 H 153/88 H Blood Pressure [Right Arm] 153/101 H Blood Pressure Mean 112 Blood Pressure Mean [Right Arm] 118 02 Sat by Pulse Oximetry 97 95 94 L Oxygen Delivery Method Room Air Room Air 04/30/24 14:30 04/30/24 15:32 Temperature 98.2 F Temperature Source Pulse Rate 94 H 85 Pulse Rate [Left Radial] Respiratory Rate 20 Blood Pressure 164/98 H 151/93 H Blood Pressure [Right Arm] Blood Pressure Mean 120 Blood Pressure Mean [Right Arm] 02 Sat by Pulse Oximetry 94 L Oxygen Delivery Method Room Air Lab Data Lab Results 04/30/24 13:08: WBC 13.4 H, RBC 4.36 L, Hgb 15.2, Hct 43.1, MCV 98.9 H, MCH 34.9 H, MCHC 35.3, RDW 12.6, Plt Count 185, MPV 10.1, Neut % (Auto) 67.7, Lymph % (Auto) 20.0, Haines % (Auto) 9.8 H, Eos % (Auto) 1.2, Baso % (Auto) 0.9, Neut # (Auto) 9.1 H, Lymph # (Auto) 2.7, Haines # (Auto) 1.3 H, Eos # (Auto) 0.2, Baso # (Auto) 0.1, Sodium 138, Potassium 4.2, Chloride 103, Carbon Dioxide 22, Anion Gap 17.2 H, BUN 6 L, Creatinine 0.70, Estimated Creat Clear 102, Estimated GFR 117, Est GFR ( Amer) 141, Glucose 87, Calcium 9.6, Total Bilirubin 0.9, AST 150 H, ALT 93 H, Alkaline Phosphatase 98, Total Protein 8.5 H, Albumin 5.2 H, Globulin 3.3 H, Albumin/Globulin Ratio 1.6, Plasma/Serum Alcohol 135 H Orders (Tests/Meds): ORDERS Category Date Time Status Consult Security Tester [CONS] Routine Cons 04/30/24 14:06 Active CXR 2 view (NOT portable) [XR chest 2V] Stat Exams 04/30/24 12:51 Completed Hip XR left minimum 2 views [XR hip LT 2-3V w/pelvis] Exams 04/30/24 12:51 Completed Stat CBC w/Auto Diff [Complete Blood Count Auto Diff] Stat Lab 04/30/24 13:08 Completed CMP [Comprehensive Metabolic Panel] Stat Lab 04/30/24 13:08 Completed Ethyl Alcohol Stat Lab 03/13/25 13:08 Completed Medical Decision Narrative: In summary, patient is a 58-year-old male PMHx HTN, alcoholism who presents to the ED for fall that occurred last night after tripping over his cat. Patient states that he landed on his left rib area and left hip. Denies loss of consciousness. Denies taking any blood thinners. Patient did not try to catch himself during the fall. States that he has smoked 5 cigars/day for many years. Estimates that he drinks at least 12 beers ([employer]) per day for several years. Denies any symptoms of withdrawal at this time. Has urinated since the fall. Upon initial exam, patient is alert, oriented and cooperative. Patient is hemodynamically stable. Physical exam remarkable for mild ecchymosis & abrasion over the left rib area, tenderness. Mild bruising and abrasion noted over left hip bony prominence. Patient did not try to catch himself. No hand or wrist tenderness. Denies fever, chills, body aches, headache, visual disturbances, posterior neck pain, chest pain, shortness of breath, back pain, difficulty with ambulation. Differential diagnosis includes rib fracture, pelvic or hip fracture, intoxicated, among others. Initial workup will be conducted with hematologic labs, imaging. Initial workup reviewed by me. CBC remarkable for leukocytosis 13.4, stable H&H. CMP remarkable for anion gap 17.2, BUN 6. AST 150, ALT 93. Serum alcohol 135. I considered additional testing but deferred due to patient remains alert, oriented, steady gait. I discussed with patient his elevated AST and ALT, patient states his primary has told him about this before. The hip x-ray is unremarkable for any acute fracture in the chest x-ray is unremarkable for any acute cardiopulmonary process, see final read. Upon repeat evaluation, patient had an acceptable resolution of symptoms. They were ambulatory in the ED. Able to tolerate PO. Given this, although alcohol level is elevated, patient is clinically sober. I discussed with him that he will need to follow back up with his PCP within 7 days. We discussed return precautions to the ED. Patient verbalized understanding. I was consulted by the YIMI, and we discussed the complexity of the problems being addressed.I approved the treatment and management plan for this patient?s care in the Emergency Department, thus performing a substantive portion of the medical decision making.Signed, MD SHAHBAZ [facility] <Laury Kraft, BUSINESS ASSISTANT - Last Filed: 04/30/24 17:02> Critical Care Time Critical Care Time: No
--- NOTE | 2024-04-30 12:51 | XR_ITS ---
FINAL REPORT CLINICAL HISTORY: fall / l hip pain / bruise COMPARISON: None FINDINGS: LEFT HIP: Three views of the left hip with an AP view of the pelvis demonstrate no acute fracture or dislocation. The joint spaces are preserved. The femoral heads have normal smooth contours. The visualized bony structures are well aligned. No soft tissue abnormality is seen. IMPRESSION: No acute bony abnormality. Reviewed, Interpreted and Dictated by J Carlos Leyva MD Transcribed by Jennifer Brown Authenticated and [facility]
--- NOTE | 2024-04-30 12:51 | XR_ITS ---
FINAL REPORT TECHNIQUE: Chest PA & Lateral CLINICAL HISTORY: fall / L rib pain COMPARISON: None FINDINGS: 2 views of the chest were performed. The heart size is normal. The mediastinum is within normal limits. There is no acute cardiopulmonary process. There are no pleural effusions. There is no pneumothorax. The bony thorax appears intact. IMPRESSION: No acute cardiopulmonary process. Reviewed, Interpreted and Dictated by J Carlos Leyva MD Transcribed by Jennifer Brown Authenticated and [facility]
[2024-04-30 13:15] LABS: Basophils # 0.1 K/mm3 (0-0.2); Basophils % 0.9 % (0.1-2.0); Eosinophils # 0.2 K/mm3 (0.0-0.4); Eosinophils % 1.2 % (0.1-12.0); Hematocrit 43.1 % (42.0-52.0); Hemoglobin 15.2 g/dL (14.1-18.0); Lymphocytes # 2.7 K/mm3 (0.7-4.5); Mean Corpuscular HGB Conc 35.3 g/dL (31.8-35.4); Mean Corpuscular Hemoglobin 34.9 pg (27.0-31.2); Mean Corpuscular Volume 98.9 fl (80-94); Mean Platelet Volume 10.1 fl (7.4-10.4); Monocytes # 1.3 K/mm3 (0.1-1.0); Monocytes % 9.8 % (1.7-9.3); Neutrophils # 9.1 K/mm3 (1.8-7.8); Neutrophils % 67.7 % (37.0-80.0); Platelet Count 185 K/mm3 (142-424); Red Blood Count 4.36 M/mm3 (4.60-6.20); Red Cell Distribution Width 12.6 % (11.5-17.5); White Blood Count 13.4 K/mm3 (4.8-10.8)
[2024-04-30 13:30] VITALS: BP 158/94; PULSE 90; O2SAT 95
[2024-04-30 13:36] LABS: Albumin Level 5.2 g/dl (3.5-5.0); Chloride 103 mmol/L (98-107); Potassium 4.2 mmoL/L (3.5-5.1); Sodium 138 mmol/L (136-145)
[2024-04-30 13:39] LABS: Alanine Aminotransferase 93 U/L (12-78); Albumin/Globulin Ratio 1.6 (1.1-1.8); Alkaline Phosphatase 98 U/L (38-126); Anion Gap 17.2 mEq/L (5-15); Aspartate Amino Transferase 150 U/L (17-59); Bilirubin,Total 0.9 mg/dl (0.2-1.3); Blood Urea Nitrogen 6 mg/dl (9-20); Carbon Dioxide 22 mmol/L (22.0-30.0); Creatinine Clearance Estimated 102 mL/min (50-200); Estimated Glomerular Filt Rate 117 ml/min (>60); GFR (African American) 141 ML/MIN (>60); Globulin 3.3 g/dL (1.3-3.2); Total Protein,Serum 8.5 g/dl (6.3-8.2)
[2024-04-30 13:40] LABS: Calcium 9.6 mg/dl (8.4-10.2); Glucose 87 mg/dl (74-100)
[2024-04-30 13:41] LABS: Ethyl Alcohol 135 mg/dl (0-10)
[2024-04-30 14:00] VITALS: BP 153/88; PULSE 89; O2SAT 94
[2024-04-30 14:30] VITALS: BP 164/98; PULSE 94; O2SAT 94
[2024-04-30 15:32] VITALS: BP 151/93; PULSE 85; RESP 20; TEMP 36.8; O2SAT 95
== END 2024-04-30 15:33 | disposition home or self-care (01) ==
PROVIDERS: Nurse Practitioner; Emergency Provider Emergency Medicine; PCP Nurse Practitioner Family
DX: R07.89 Other chest pain (principal); W01.0XXA Fall on same level from slipping, tripping and stumbling without subsequent striking against object, initial encounter
CPT/HCPCS: 71046; 73502; 80053; 80320; 85025; 99284